=== PATIENT | male | born 1975 | race African-American/Black ===

== ENCOUNTER 2022-10-26 10:26 | Outpatient (AMB) | payer OTHER, SELFPAY ==
[2022-10-26 11:01] VITALS: BP 134/82; PULSE 76; O2SAT 97
--- NOTE | 2022-10-26 11:01 | MHC.PC.OV ---
Vital Signs 10/26/22 11:01 Weight 194 lb 2 oz BP 134/82 Blood Pressure Location Rt brachial Position Sitting Pulse 76 Pulse Source Pulse Oximeter Pulse Oximetry (%) 97 Oxygen Delivery Method Room Air Intake Visit Reasons: R eye irritation & BP concerns Intake Note: R eye concerns. Allergies No Known Allergies Allergy (Verified 10/26/22 11:05) Dental Screening Dental Screen Date: 10/26/22 Did you have a dental visit in the last 12 months?: Yes Did you have a dental problem in the last 6 months where you did not have access to dental care?: No Was dental information given to patient?: No HPI R eye irritation & BP concerns HPI Details Pt presents for an acute visit today. He reports discomfort with his R eye. He reports he had seen his principal technical specialist and had given him eyedrops for this which he has run out of. 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 1. Little interest or pleasure in doing things: several days 2. Feeling down, depressed, or hopeless: several days 3. Trouble falling or staying asleep, or sleeping too much: not at all 4. Feeling tired or having little energy: several days 5. Poor appetite or overeating: several days 6. Feeling bad about yourself - or that you are a failure or have let yourself or your family down: not at all 7. Trouble concentrating on things, such as reading the newspaper or watching television: several days 8. Moving or speaking so slowly that other people could have noticed. Or the opposite - being so fidgety or restless that you have been moving around a lot more than usual: not at all 9. Thoughts that you would be better off or of hurting yourself in some way: not at all Total score: 5 26058 - PHQ-9 Billing: Yes Source: Developed by Drs. Jamal Cabello, Mary Ellen Sims, Dereje De La O and colleagues, with an educational jen from [employer]. Thrive Questionnaire Date Thrive assessed: 10/26/22 I am a: Patient What is your living situation today?: I have a steady place to live Within the past 12 months, did the food you bought not last and you didn't have the money to get more?: Never true Within the past 12 months, did you worry whether your food would run out before you got money to buy more?: Never true Do you have trouble paying for medicines?: No Do you have trouble getting transportation to medical appointments?: No Do you have trouble paying your heating and electricity bill?: No Do you have trouble taking care of your child, family member or friend?: No Do you have trouble with day-to-day activities such as bathing, preparing meals, shopping, managing finances, etc.?: No Are you currently unemployed and looking for a job?: No Are you interested in more education?: No Please select the resources that you would like help with: None Currently or been in a relationship where the following occur: no concerns reported CESIA-7 AMB Questionnaire CESIA-7 Date CESIA - 7 assessed: 10/26/22 Feeling nervous, anxious, or on edge: 0 = Not at all Not being able to stop or control worryin = Not at all Worrying too much about different things: 1 = Several days Trouble relaxin = Not at all Being so restless that it is hard to sit still: 0 = Not at all Becoming easily annoyed or irritable: 0 = Not at all Feeling afraid as if something awful might happen: 0 = Not at all Total CESIA-7 score (0-4 normal; 5-9 mild; 10-14 moderate; 15-21 severe): 1 Source: Developed by Drs. Jamal Cabello, Mary Ellen Sims, Dereje De La O and colleagues, with an educational jen from [employer]. CESIA-7 Assessment Billing CESIA-7 Assessment Tool: CESIA-7 Assessment 23595 Review of Systems Const Denies chills, Denies fatigue, Denies fever(s), Denies headache(s) and Denies weakness ENT Denies dizziness and Denies headache(s) Card Denies chest pain, Denies lightheadedness, Denies dyspnea and Denies other (Palpitations) Resp Denies cough, Denies dyspnea, Denies wheezing and Denies other ( shortness of breath) Musc Denies numbness and Denies tingling Neuro Denies dizziness, Denies headache(s), Denies numbness, Denies tingling, Denies paresthesias and Denies weakness Psych Denies anxiety and Denies depression Endo Denies fatigue Aller/Immun Denies wheezing Physical exam (Primary Care) Vital Signs: Last Vital Signs Pulse 76 10/26/22 11:01 BP 134/82 10/26/22 11:01 Pulse Ox 97 10/26/22 11:01 Oxygen Delivery Method Room Air 10/26/22 11:01 Tobacco/Smoking Status: Tobacco use Status Patient Tobacco Use Status Never used Tobacco 10/26/22 11:02 e-Cigarette/Vaping Use Never Used 10/26/22 11:13 PHQ-9: PHQ-9 Score PHQ-9: Total score 5 10/26/22 11:29 Thrive Assessment: Date of Thrive Assessment Date Thrive assessed 10/26/22 10/26/22 11:02 Currently or been in a relationship where the following occur: no concerns reported Const General: no acute distress and well developed Nutritional Appearance: well nourished Orientation/consciousness: patient oriented x3 HENMT Head: Yes normocephalic and Yes atraumatic Eyes General: appearance normal, both eyes and all related structures Pupils: Equal, round and reactive pupils present EOM: EOMs intact bilaterally Resp Effort & Inspection: normal respiratory effort Auscultation: clear to auscultation bilaterally Cardio Rate: regular rate Rhythm: regular rhythm Heart sounds: S1 normal heart sound present, S2 normal heart sound present, no gallops, no murmurs and no rubs Neuro General: patient oriented x3 and gait normal Cranial nerves: Yes Equal, round and reactive pupils present Psych Affect: normal affect Assessment and Plan Assessment & Plan (1) Pterygium: Code(s): H11.009 - Unspecified pterygium of unspecified eye Plan: Right eye to region with significant erythema likely secondary to mechanical irritation but some concern for early infection He has an appointment to see an bottling line attendant to me as seen once already but he needs a referral for this. Referral is made. Him giving him an erythromycin ointment to prevent infection and should be soothing to his eye. (2) Irritation of right eye: Code(s): H57.89 - Other specified disorders of eye and adnexa Plan: As above (3) Pre-hypertension: Code(s): R03.0 - Elevated blood-pressure reading, without diagnosis of hypertension Plan: I have asked him to bring in a log of his blood pressures at home for review with his PCP, SONIA at their initial visit Orders: Orders Comprehensive River. Panel Fast Today Z00.00 - Encounter for general adult medical examination without abnormal findings Lipid Panel Today Z00.00 - Encounter for general adult medical examination without abnormal findings Prostate Specific Antigen Scr Today Z12.5 - Encounter for screening for malignant neoplasm of prostate TSH reflex Free T4 Today Z00.00 - Encounter for general adult medical examination without abnormal findings Microalbumin, Random (w Creat) Today I10 - Essential (primary) hypertension Complete Blood Count Auto Diff Today Z00.00 - Encounter for general adult medical examination without abnormal findings UA and rflx microscopic Today Z00.00 - Encounter for general adult medical examination without abnormal findings Referrals Ophthalmology Referral H11.009 - Unspecified pterygium of unspecified eye, H57.89 - Other specified disorders of eye and adnexa Medications: New erythromycin 0.5 inches ophthalmic (eye) TID 7 days 3.5 grams 0RF Coding Level of Care Code New Pt Level 3 (30500) Diagnoses Pterygium H11.009 Irritation of right eye H57.89 Pre-hypertension R03.0 Additional Codes CESIA-7 Assessment Billing - CESIA-7 Assessment Tool: CESIA-7 Assessment 25874 ([id number])
== END 2022-10-26 11:45 | disposition home or self-care (01) ==
PROVIDERS: PCP Family Medicine; Visit Provider Family Medicine
DX: H11.009 Unspecified pterygium of unspecified eye (principal); H57.89 Other specified disorders of eye and adnexa; R03.0 Elevated blood-pressure reading, without diagnosis of hypertension
CPT/HCPCS: 99203

== ENCOUNTER 2022-10-26 11:54 | Outpatient (REF) | payer OTHER, SELFPAY ==
[2022-10-26 14:46] LABS: MANUAL DIFF FLAG NO
[2022-10-26 14:57] LABS: Basophils Percent Auto 0.5 % (0-2); Eosinophils Absolute Auto 0.1 X10*3/uL (0.0-0.4); Eosinophils Percent Auto 1.4 % (0-4); Hematocrit 52.1 % (42.0-52.0); Hemoglobin 16.5 g/dl (14.0-18.0); Imm Gran Abs Auto 0.01 X10*3/uL (0.00-0.03); Imm Gran Pct Auto 0.2 % (0.0-0.4); Lymphocytes Absolute Auto 1.8 X10*3/uL (1.2-4.9); Mean Corpuscular HGB Conc 31.7 g/dl (31.0-36.0); Mean Corpuscular Hemoglobin 25.2 pg (27.0-33.0); Mean Corpuscular Volume 79.4 fL (80.0-98.0); Monocytes Absolute Auto 0.4 X10*3/uL (0.1-1.2); Monocytes Percent Auto 6.7 % (2-11); Neutrophils Absolute Auto 4.1 x10*3/uL (2.0-8.3); Neutrophils Percent Auto 63.2 % (45-73); Platelet Count 239 X10*3/uL (160-400); Red Blood Count 6.56 X10*6/uL (4.60-5.80); Red Cell Distribution Width 15.5 % (11.0-16.0); White Blood Count 6.4 X10*3/uL (4.8-10.8)
[2022-10-26 15:33] LABS: Alanine Aminotransferase 28 U/L (0-40); Albumin Level 4.7 g/dL (3.5-5.0); Alkaline Phosphatase 94 U/L (39-117); Anion Gap 17 (12-20); Aspartate Amino Transferase 27 U/L (5-37); Bilirubin Total 1.1 mg/dL (0.0-1.0); Blood Urea Nitrogen 7 mg/dL (9-16); Calcium 9.7 mg/dL (8.4-10.2); Carbon Dioxide 24 mmol/L (22-29); Chloride 106 mmol/L (96-108); Cholesterol 253 mg/dL; Estimated Glomerular Filt Rate > 60; Glucose Fasting 106 mg/dL (60-99); HDL Cholesterol 48 mg/dL; LDL Cholesterol Calculated 180 mg/dl; Potassium 3.6 mmol/L (3.3-5.1); Sodium 143 mmol/L (135-145); Triglycerides 127 mg/dL
[2022-10-26 15:48] LABS: Prostate Specific Antigen Scr 0.28 ng/mL (<0.05-4.0); TSH reflex Free T4 0.81 uIU/mL (0.32-4.0)
== END 2022-10-26 11:55 | disposition home or self-care (01) ==
LOC: HO.WFDLDS 11:54
PROVIDERS: Visit Provider Family Medicine
DX: Z00.00 Encounter for general adult medical examination without abnormal findings (principal); I10 Essential (primary) hypertension; Z12.5 Encounter for screening for malignant neoplasm of prostate
CPT/HCPCS: 36415; 80053; 80061; 84153; 84443; 85025

== ENCOUNTER 2023-06-05 14:59 | Outpatient (AMB) | payer OTHER, SELFPAY ==
--- NOTE | 2023-06-05 15:00 | A.OFFPC_ITS ---
Vital Signs 06/05/23 15:03 Height 5 ft 8 in Weight 194 lb BMI 29.5 BP 134/88 Blood Pressure Location Rt brachial Position Sitting Pulse 96 Pulse Source Pulse Oximeter Pulse Oximetry (%) 97 Oxygen Delivery Method Room Air Intake Visit Reasons: Est Care Intake Note: Pt is here today as a New Patient to est care Allergies No Known Allergies Allergy (Verified 06/05/23 15:12) Medication List - Last Reconciled 06/05/23 by ALVIN Davila No Known Home Meds Tobacco use date assessed: 06/05/23 Dental Screening Dental Screen Date: 06/05/23 Did you have a dental visit in the last 12 months?: Yes Did you have a dental problem in the last 6 months where you did not have access to dental care?: No Was dental information given to patient?: Patient has dentist HPI HPI Comments History of Present Illness Details This is a 47-year-old male who I am meeting for the 1st time. He has a past medical history of hypertension and Pterygium of the right eye. Patient is due for colonoscopy, will refer. Patient had recent PSA draw which was normal. Will draw fasting labs. Patient is refusing immunizations at this time. Patient is slightly appointment today. Not currently taking any medications. Patient will have his help take blood pressure measurements at home and keep a record book. Patient has been educated worsening signs and symptoms. Patient has a chief complaint of low energy. 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 Patient educated that he should be getting at least 6 hours of sleep per night, this is likely why he is having lack of energy. Will also draw TSH, T4, vitamin B6, vitamin B12, vitamin-D, CBC. 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 1. Little interest or pleasure in doing things: not at all 2. Feeling down, depressed, or hopeless: not at all 3. Trouble falling or staying asleep, or sleeping too much: not at all 4. Feeling tired or having little energy: not at all 5. Poor appetite or overeating: not at all 6. Feeling bad about yourself - or that you are a failure or have let yourself or your family down: not at all 7. Trouble concentrating on things, such as reading the newspaper or watching television: not at all 8. Moving or speaking so slowly that other people could have noticed. Or the opposite - being so fidgety or restless that you have been moving around a lot more than usual: not at all 9. Thoughts that you would be better off or of hurting yourself in some way: not at all Total score: 0 Depression Screening Interpretation: Negative Depression Screening Done: Yes 81517 - PHQ-9 Billing: Yes Source: Developed by Drs. Jamal Cabello, Mary Ellen Sims, Dereje De La O and colleagues, with an educational jen from [employer]. Thrive Questionnaire Date Thrive assessed: 10/26/22 AUDIT C Alcohol Use Questionnaire (AUDIT-C) 1. How often do you have a drink containing alcohol?: Monthly or less 2. How many drinks containing alcohol do you have on a typical day when you are drinking?: 1 or 2 3. How often do you have six or more drinks on one occasion?: Never Total Score: 1 CESIA-7 AMB Questionnaire CESIA-7 Date CESIA - 7 assessed: 06/05/23 Feeling nervous, anxious, or on edge: 0 = Not at all Not being able to stop or control worryin = Not at all Worrying too much about different things: 0 = Not at all Trouble relaxin = Not at all Being so restless that it is hard to sit still: 0 = Not at all Becoming easily annoyed or irritable: 0 = Not at all Feeling afraid as if something awful might happen: 0 = Not at all Total CESIA-7 score (0-4 normal; 5-9 mild; 10-14 moderate; 15-21 severe): 0 Source: Developed by Drs. Jamal Cabello, Mary Ellen Sims, Dereje De La O and colleagues, with an educational jen from [employer]. CESIA-7 Assessment Billing CESIA-7 Assessment Tool: CESIA-7 Assessment 05810 Review of Systems Const All systems reviewed & are unremarkable except as noted in HPI and below Physical exam (Primary Care) Vital Signs: Last Vital Signs Pulse 96 06/05/23 15:03 BP 134/88 06/05/23 15:03 Pulse Ox 97 06/05/23 15:03 Oxygen Delivery Method Room Air 06/05/23 15:03 Care Plan Goal for BP management: Patient will take blood pressure measurements at home Next steps: Follow-up in 2 weeks with results BMI result Body Mass Index 29.5 Tobacco/Smoking Status: Tobacco use Status Tobacco use date assessed 06/05/23 06/05/23 15:08 Patient Tobacco Use Status Former Tobacco user 06/05/23 15:08 e-Cigarette/Vaping Use Never Used 06/05/23 15:08 Depression Screening Interpretation: Negative Thrive Assessment: Date of Thrive Assessment Date Thrive assessed 10/26/22 06/05/23 15:08 Const Other: Appearance: Alert.? Oriented X3.? No acute distress.? Head: Normocephalic, atraumatic, no step-offs or deformities Eyes: Pupils equal, round and reactive to light.?+ ptergium of right eye. ENT: Pharynx normal.?TM inact and pearly bennett. Neck: Normal inspection.? Neck supple.? CVS: Normal heart rate and rhythm.? Pulses normal.? Respiratory: No respiratory distress.? Breath sounds normal.? Neuro: Oriented X 3.? No motor deficit.? No sensory deficit. CN 2-12 intact Results Reviewed Results Reviewed: Sodium 143 135-145 mmol/L Potassium 3.6 3.3-5.1 mmol/L CL 106 96-108 mmol/L CO2 24 22-29 mmol/L Gap 17 12-20 BUN 7 L 9-16 mg/dL Creat 0.82 0.5-1.4 mg/dL EGFR > 60 NOTE: For -[place] individuals, multiply the result by 1.210. Chronic Kidney Disease: Estimated GFR < 60 mL/min/1.73m2 Severe Kidney Disease: Estimated GFR < 15 mL/min/1.73m2 FBS 106 H 60-99 mg/dL A fasting glucose from 100-125 mg/dl is considered impaired (pre-diabetes). CA 9.7 8.4-10.2 mg/dL Total Bili 1.1 H 0.0-1.0 mg/dL AST (GOT) 27 5-37 U/L ALT (GPT) 28 0-40 U/L Protein, Total 8.0 6.5-8.0 g/dL Alb 4.7 3.5-5.0 g/dL Triglyceride 127 mg/dL Desirable Triglyceride: less than 150 mg/dL Borderline High Triglyceride 150-199 mg/dL High Triglyceride: 200-499 mg/dL Very High Triglyceride: greater than or equal to 5OO mg/dL Chol 253 mg/dL Desirable Cholesterol: less than 200 mg/dL Borderline High Cholesterol: 200-239 mg/dL High Cholesterol: greater than 239 mg/dL LDL Calculated 180 mg/dl Desirable LDL: less than 100 mg/dL Near Optimal/Above Optimal LDL: 110-129 mg/dL Borderline High LDL: 130-159 mg/dL High LDL: 160-189 mg/dL Very High LDL: greater than or equal to 190 mg/dL HDL 48 mg/dL Desirable HDL: greater than 40 mg/dL Note: This HDL assay may give artificially low results in patients with liver disease. Alk Phos 94 39-117 U/L TSH 0.81 0.32-4.0 uIU/mL Assessment and Plan Assessment & Plan (1) Pterygium: Comment: Patient states he has surgery for mid August to remove pterygium. Will schedule preop clearance for beginning of August Code(s): H11.009 - Unspecified pterygium of unspecified eye Qualifiers: Laterality: right Qualified Code(s): H11.001 - Unspecified pterygium of right eye (2) Pre-hypertension: Comment: Patient will continue to take blood pressure measurements at home. Code(s): R03.0 - Elevated blood-pressure reading, without diagnosis of hypertension Plan: Take your medications as prescribed. If you were prescribed antibiotics today, it is important that you take your medication to their entirety, do not skip any doses, do not finish them early. Follow-up with your primary care provider this week. Return to the emergency department with new or worsening symptoms. Such as fevers, chills, chest pain, shortness of breath, nausea, vomiting, dizziness, headache, vision changes, lethargy In case of emergency call 911 (3) Low energy: Comment: Patient gets 3-4 hours of sleep per night this is likely the reason for low energy. Still draw labs including CBC, CMP, vitamin-D, vitamin B6, vitamin B12, testosterone Code(s): R53.83 - Other fatigue Plan: Patient will ask his if he snores to determine sleep apnea is a potential exacerbating factor. Plan Follow-up in 3 months. Orders: Orders Vitamin D 25-OH (D2 and D3) Today Z13.21 - Encounter for screening for nutritional disorder Vitamin B6 Today Z13.21 - Encounter for screening for nutritional disorder UA CC w/rflx Micro + Cult Today Z13.89 - Encounter for screening for other disorder Hemoglobin A1c Today Z13.1 - Encounter for screening for diabetes mellitus Vitamin B12 Today Z13.21 - Encounter for screening for nutritional disorder Comprehensive Met. Panel Today I10 - Essential (primary) hypertension TSH reflex Free T4 Today Z13.29 - Encounter for screening for other suspected endocrine disorder Testosterone, Free/Total Today R53.83 - Other fatigue Complete Blood Count Auto Diff Today Z13.0 - Encounter for screening for diseases of the blood and blood-forming organs and certain disorders involving the immune mechanism Referrals Gastroenterology Referral Z12.11 - Encounter for screening for malignant neoplasm of colon Coding Level of Care Code Est Pt Level 4 (71170) Diagnoses Pterygium of right eye H11.001 Laterality: right Pre-hypertension R03.0 Low energy R53.83 Additional Codes CESIA-7 Assessment Billing - CESIA-7 Assessment Tool: CESIA-7 Assessment 46509 ([id number]) Time Spent (min) 30
[2023-06-05 15:03] VITALS: BP 134/88; PULSE 96; O2SAT 97; BMI 29.5
== END 2023-06-05 15:38 | disposition home or self-care (01) ==
PROVIDERS: PCP Family Medicine; Visit Provider Nurse Practitioner Primary Care
DX: H11.001 Unspecified pterygium of right eye (principal); R03.0 Elevated blood-pressure reading, without diagnosis of hypertension; R53.83 Other fatigue
CPT/HCPCS: 99214

== ENCOUNTER 2023-06-10 10:23 | Outpatient (REF) | payer OTHER, SELFPAY ==
[2023-06-10 11:55] LABS: MANUAL DIFF FLAG NO
[2023-06-10 12:03] LABS: Basophils Percent Auto 0.5 % (0-2); Eosinophils Absolute Auto 0.2 X10*3/uL (0.0-0.4); Eosinophils Percent Auto 2.5 % (0-4); Hematocrit 49.7 % (42.0-52.0); Hemoglobin 16.1 g/dl (14.0-18.0); Imm Gran Abs Auto 0.02 X10*3/uL (0.00-0.03); Imm Gran Pct Auto 0.3 % (0.0-0.4); Lymphocytes Absolute Auto 2.5 X10*3/uL (1.2-4.9); Lymphocytes Percent Auto 41.1 % (20-40); Mean Corpuscular HGB Conc 32.4 g/dl (31.0-36.0); Mean Corpuscular Volume 77.2 fL (80.0-98.0); Mean Platelet Volume 10.8 fL (9.4-12.4); Monocytes Absolute Auto 0.5 X10*3/uL (0.1-1.2); Monocytes Percent Auto 7.4 % (2-11); Neutrophils Absolute Auto 2.9 x10*3/uL (2.0-8.3); Neutrophils Percent Auto 48.2 % (45-73); Platelet Count 241 X10*3/uL (160-400); Red Blood Count 6.44 X10*6/uL (4.60-5.80); Red Cell Distribution Width 15.2 % (11.0-16.0); White Blood Count 6.1 X10*3/uL (4.8-10.8)
[2023-06-10 12:10] LABS: Estimated Average Glucose 114 mg/dL; Hemoglobin A1C 148.4309 umol/L; Hemoglobin A1c % 5.6 % (<6.0)
[2023-06-10 12:45] LABS: Alanine Aminotransferase 19 U/L (0-40); Albumin Level 4.4 g/dL (3.5-5.0); Alkaline Phosphatase 97 U/L (39-117); Anion Gap 15 (12-20); Aspartate Amino Transferase 20 U/L (5-37); Bilirubin Total 1.6 mg/dL (0.0-1.0); Blood Urea Nitrogen 11 mg/dL (9-16); Calcium 9.5 mg/dL (8.4-10.2); Carbon Dioxide 26 mmol/L (22-29); Chloride 107 mmol/L (96-108); Estimated Glomerular Filt Rate > 60; Glucose Random 103 mg/dL (60-115); Potassium 3.7 mmol/L (3.3-5.1); Sodium 144 mmol/L (135-145); Total Protein 7.8 g/dL (6.5-8.0)
[2023-06-10 12:46] LABS: TSH reflex Free T4 0.94 uIU/mL (0.32-4.0)
[2023-06-10 12:50] LABS: Vitamin B12 313 pg/mL (200-900)
[2023-06-14 13:39] LABS: Vitamin D 25-OH, D2 <4 ng/mL; Vitamin D 25-OH, D3 7 ng/mL; Vitamin D 25-OH, Total 7 ng/mL (30-100)
[2023-06-15 14:53] LABS: Testosterone, Free 63.4 pg/mL (35.0-155.0); Testosterone, Total 420 ng/dL (250-1100)
== END 2023-06-10 10:24 | disposition home or self-care (01) ==
LOC: HO.HMGCLDS 10:23
PROVIDERS: PCP Nurse Practitioner Primary Care; Visit Provider Nurse Practitioner Primary Care
DX: Z13.29 Encounter for screening for other suspected endocrine disorder (principal); Z13.21 Encounter for screening for nutritional disorder; Z13.0 Encounter for screening for diseases of the blood and blood-forming organs and certain disorders involving the immune mechanism; I10 Essential (primary) hypertension; R53.83 Other fatigue
CPT/HCPCS: 36415; 80053; 82306; 82607; 83036; 84207; 84402; 84403; 84443; 85025

== ENCOUNTER 2023-09-01 15:19 | Outpatient (REF) | payer OTHER, SELFPAY ==
[2023-09-01 18:00] LABS: Appearance Urine Clear; Color Urine Yellow; Glucose Urine UA Negative (Negative); Leukocyte Esterase Urine Negative (Negative); Nitrite Urine Negative (Negative); Urine Blood Negative (Negative); Urine Ketones Negative (Negative); Urine Protein Negative (Neg-Trace)
== END 2023-09-01 15:20 | disposition home or self-care (01) ==
LOC: HO.LAB 15:19
PROVIDERS: PCP Family Medicine; Visit Provider Nurse Practitioner Primary Care
DX: Z13.89 Encounter for screening for other disorder (principal)
CPT/HCPCS: 81003

== ENCOUNTER 2023-10-09 15:21 | Outpatient (AMB) | payer OTHER, SELFPAY ==
--- NOTE | 2023-10-09 15:25 | A.OFFPC_ITS ---
Vital Signs 10/09/23 15:27 Height 5 ft 8 in Weight 197 lb BMI 30.0 BP 132/74 Blood Pressure Location Rt brachial Position Sitting Pulse 84 Pulse Source Pulse Oximeter Pulse Oximetry (%) 98 Oxygen Delivery Method Room Air Intake Visit Reasons: Eye Surgery/ ok for Nito Intake Note: pt is here for pre-op clearance for RT eye surgery( Pterygium) 10/24/23 Allergies No Known Allergies Allergy (Verified 10/09/23 15:56) Medication List - Last Reconciled 10/09/23 by ALVIN Davila No Known Home Meds Tobacco use date assessed: 10/09/23 Dental Screening Dental Screen Date: 06/05/23 HPI HPI Comments History of Present Illness Details Patient is a 48-year-old male in today for preoperative clearance for pterygium surgery of the right eye. Patient is not currently taking any medications. He is prehypertensive. No cardiac history. He is not currently taking any medications. He has been educated to withhold NSAIDs 5 days prior to the procedure. He denies any recent fevers or chills, denies any symptoms of shortness of breath, chest pain, nausea, vomiting, diarrhea, numbness. PFSH Surgical History Hx of appendectomy Family History Mother High blood pressure Social History Housing: House Alcohol intake: never Patient Tobacco Use Status: Former Tobacco user e-Cigarette/Vaping Use: Never Used service: No Current occupational status: employed Current occupation: [employer] Current occupational exposures/hazards: Yes Cognitive needs: No Hearing needs: No Vision needs: Yes Questionnaire PHQ-9 Over the last 2 weeks, how often have you been bothered by any of the following problems? 1. Little interest or pleasure in doing things: not at all 2. Feeling down, depressed, or hopeless: not at all 3. Trouble falling or staying asleep, or sleeping too much: not at all 4. Feeling tired or having little energy: not at all 5. Poor appetite or overeating: not at all 6. Feeling bad about yourself - or that you are a failure or have let yourself or your family down: not at all 7. Trouble concentrating on things, such as reading the newspaper or watching television: not at all 8. Moving or speaking so slowly that other people could have noticed. Or the opposite - being so fidgety or restless that you have been moving around a lot more than usual: not at all 9. Thoughts that you would be better off or of hurting yourself in some way: not at all Total score: 0 Depression Screening Interpretation: Negative Depression Screening Done: Yes [id number] - PHQ-9 Billing: Yes Source: Developed by Drs. Jamal Cabello, Mary Ellen Sims, Dereje De La O and colleagues, with an educational jen from [employer] [place]. Thrive Questionnaire Date Thrive assessed: 10/09/23 I am a: Patient What is your living situation today?: I do not have a steady places to live I am temporarily staying with others Within the past 12 months, did the food you bought not last and you didn't have the money to get more?: Never true Within the past 12 months, did you worry whether your food would run out before you got money to buy more?: Never true Do you have trouble paying for medicines?: Yes Do you have trouble getting transportation to medical appointments?: No Do you have trouble paying your heating and electricity bill?: Yes Do you have trouble taking care of your child, family member or friend?: No Do you have trouble with day-to-day activities such as bathing, preparing meals, shopping, managing finances, etc.?: No Are you currently unemployed and looking for a job?: No Are you interested in more education?: No Please select the resources that you would like help with: Transportation Currently or been in a relationship where the following occur: No concerns reported THRIVE Score: 2 AUDIT C Alcohol Use Questionnaire (AUDIT-C) 1. How often do you have a drink containing alcohol?: Never Total Score: 0 CESIA-7 AMB Questionnaire CESIA-7 Date CESIA - 7 assessed: 06/05/23 Feeling nervous, anxious, or on edge: 0 = Not at all Not being able to stop or control worryin = Not at all Worrying too much about different things: 0 = Not at all Trouble relaxin = Not at all Being so restless that it is hard to sit still: 0 = Not at all Becoming easily annoyed or irritable: 0 = Not at all Feeling afraid as if something awful might happen: 0 = Not at all Total CESIA-7 score (0-4 normal; 5-9 mild; 10-14 moderate; 15-21 severe): 0 Source: Developed by Drs. Jamal Cabello, Mary Ellen Sims, Dereje De La O and colleagues, with an educational jen from [employer] [place]. Physical exam (Primary Care) Vital Signs: Last Vital Signs Pulse 84 10/09/23 15:27 BP 132/74 10/09/23 15:27 Pulse Ox 98 10/09/23 15:27 Oxygen Delivery Method Room Air 10/09/23 15:27 Care Plan Goal for BP management: Vital signs are stable. BMI result Body Mass Index 30.0 Tobacco/Smoking Status: Tobacco use Status Tobacco use date assessed 10/09/23 10/09/23 15:31 Patient Tobacco Use Status Former Tobacco user 10/09/23 15:26 e-Cigarette/Vaping Use Never Used 10/09/23 15:26 PHQ-9: PHQ-9 Score PHQ-9: Total score 0 10/09/23 15:40 Depression Screening Interpretation: Negative Thrive Assessment: Date of Thrive Assessment Date Thrive assessed 10/09/23 10/09/23 15:31 Currently or been in a relationship where the following occur: No concerns reported Const Other: Appearance: Alert.? Oriented X3.? No acute distress.? Head: Normocephalic, atraumatic, no step-offs or deformities Eyes: +Pterygium of right eye. ENT: Pharynx normal.?TM intact and pearly bennett. Neck: Normal inspection.? Neck supple.? CVS: Normal heart rate and rhythm.? Pulses normal.? Respiratory: No respiratory distress.? Breath sounds normal.? Neuro: Oriented X 3.? No motor deficit.? No sensory deficit. CN 2-12 intact Assessment and Plan Assessment & Plan (1) Visit for pre-operative examination: Comment: Patient is low cardiac risk for procedure. There is no medical contraindication for this elective procedure. Code(s): Z01.818 - Encounter for other preprocedural examination (2) Pterygium: Comment: Patient reports surgery in 2 weeks to remove pterygium. Code(s): H11.009 - Unspecified pterygium of unspecified eye Qualifiers: Laterality: right Qualified Code(s): H11.001 - Unspecified pterygium of right eye (3) Pre-hypertension: Comment: Patient will continue to take blood pressure measurements at home. Code(s): R03.0 - Elevated blood-pressure reading, without diagnosis of hypertension Plan: Draw labs Plan Patient to follow-up in 6 months Orders: Orders Comprehensive Met. Panel Today Z91.89 - Other specified personal risk factors, not elsewhere classified Vitamin D 25-OH (D2 and D3) Today Z13.21 - Encounter for screening for nutritional disorder Complete Blood Count Auto Diff Today Z91.89 - Other specified personal risk factors, not elsewhere classified Microalbumin, Random (w Creat) Today Z13.89 - Encounter for screening for other disorder Coding Level of Care Code Est Pt Level 3 (63316) Diagnoses Visit for pre-operative examination Z01.818 Pterygium of right eye H11.001 Laterality: right Pre-hypertension R03.0 Time Spent (min) 25
[2023-10-09 15:27] VITALS: BP 132/74; PULSE 84; O2SAT 98
== END 2023-10-09 16:40 | disposition home or self-care (01) ==
PROVIDERS: PCP Nurse Practitioner Primary Care; Visit Provider Nurse Practitioner Primary Care
DX: Z01.818 Encounter for other preprocedural examination (principal); H11.001 Unspecified pterygium of right eye; R03.0 Elevated blood-pressure reading, without diagnosis of hypertension
CPT/HCPCS: 99213